=== PATIENT | female | born 1945 | race Caucasian/White ===

== ENCOUNTER 2016-10-08 02:13 | Observation (INO) | payer MEDICARE, OTHER ==
--- NOTE | ~2016-10-08 | CN ---
Consultation Report [facility] [address] [place]. [address] NAME: CHRIS HO : 49 STATUS : ADM Sdyni PAT#: [id number] AGE: 71 ADM/REG DATE : 10/08/16 MR#: [id number] REPORT SERV DATE: 10/09/16 DICTATED BY: BRENTON QUACH DATE: 10/08/16 REPORT STATUS : Draft TRANSCRIBED BY: MODDaniel DATE: 10/08/16 ORTHOPEDIC FOOT AND ANKLE CONSULTATION DATE OF CONSULTATION: 10/08/2016 REASON FOR CONSULTATION: Left trimalleolar ankle fracture. I was called by Dr. Bradley Mason to evaluate Chris Ho. HISTORY OF PRESENT ILLNESS: Chris Ho is a 71-year-old lady who presents from [facility] with a trimalleolar fracture of the left ankle. The patient fell and suffered an unstable left ankle fracture. She denied associated injury to include head injury, loss of consciousness, or injury to her cervical, thoracic, or lumbar spine. She denied injury to her bilateral upper or right lower extremity. REVIEW OF SYSTEMS: The patient was in her usual state of health at the time of the evaluation. She denied fevers, chills, nausea, vomiting, abdominal pain, shortness of breath, or chest pain. PAST MEDICAL HISTORY: Complicated including several strokes in the past with resultant seizure disorder, encephalomalacia, longstanding hypertension, hyperlipidemia, hypothyroidism, osteoarthritis, osteoporosis, mild cognitive impairment, and coronary artery disease with previous stent placement. She was here two months ago with UTI and encephalopathy. FAMILY HISTORY: Heart disease. SOCIAL HISTORY: with grown children. Lives in assisted living with no history of alcohol, tobacco, or drugs. She states she is a community ambulator and gets up every day. ALLERGIES: DILANTIN, QUINOLONES, PENICILLIN, CEPHALOSPORINS, BUTALBITAL, AND MACROBID. PHYSICAL EXAMINATION: GENERAL: Reveals age-appropriate female, lying supine in the hospital bed. She is in no acute distress. VITAL SIGNS: She is 5 feet 5 inches tall and weighs around 256 pounds. BP is 140/61, pulse 72, and respirations 16. GENERAL: She is awake and answers questions. She is appropriate and admits to only left ankle pain. HEAD: Atraumatic. Pupils equal to light and reactive. NECK: Nontender with gentle range of motion. CHEST: Nonlabored breathing. HEART: Regular rate. ABDOMEN: Obese. Consultation Report [place] [place] [id number] [place]. [address] NAME: CHRIS HO : 49 STATUS : ADM Sydni PAT#: [id number] AGE: 71 ADM/REG DATE : 10/08/16 MR#: [id number] REPORT SERV DATE: 10/09/16 DICTATED BY: BRENTON QUACH DATE: 10/08/16 REPORT STATUS : Draft TRANSCRIBED BY: FRANKY DATE: 10/08/16 EXTREMITIES: Splint in place from the emergency room. Right lower extremity shows no evidence of traumatic injuries. No open skin lesions. LABORATORY DATA: White count is 8.9, hemoglobin 12.8. X-RAYS: X-rays of the hip, pelvis, left leg, left ankle, and left foot show a trimalleolar fracture of the left ankle. IMPRESSION: Left trimalleolar ankle fracture. PLAN: Lengthy discussion with the patient regarding her diagnosis and treatment options. This is an unstable fracture pattern and she is a community ambulator. For this reason, I recommended open reduction and internal fixation. We discussed the risks and benefits of the surgery, and at the conclusion of this, all of her questions have been appropriately answered. She wished to proceed with surgery. We will proceed with surgical stabilization of this ankle fracture. Thanks for the opportunity to participate in the care of this patient. Please feel free to call me on my cell phone at [phone] with additional questions or concerns. I spent 50 minutes on this consultation including medical record review, x-ray review, and [id number] discussion with the patient regarding her diagnosis and available treatment options. KATEY/FRANKY Brenton Quach MD / [id number] CC: Bradley Mason M.D.
--- NOTE | ~2016-10-08 | OP ---
Record Of Operation [facility] [address] [place]. [address] NAME: CHRIS HO : 49 STATUS : ADM Sydni PAT#: [id number] AGE: 71 ADM/REG DATE : 10/08/16 MR#: [id number] REPORT SERV DATE: 10/09/16 DICTATED BY: BRENTON QUACH DATE: 10/08/16 REPORT STATUS : Draft TRANSCRIBED BY: MODDaniel DATE: 10/08/16 DATE OF PROCEDURE: 10/08/2016 PREOPERATIVE DIAGNOSIS: Left trimalleolar ankle fracture. POSTOPERATIVE DIAGNOSIS: Left trimalleolar ankle fracture. PROCEDURE: Open reduction and internal fixation of left trimalleolar ankle fracture. ANESTHESIA: General. COMPLICATIONS: None. STATION CASHIER: Donis, surgical public aid eligibility assistant. IMPLANTS USED: Arthrex ankle fracture set. INDICATION FOR OPERATION: Chris Ho is a pleasant 71-year-old female who suffered the above with significant comorbid medical conditions. She lives at [facility]. She suffered a fall from a standing height with the above-mentioned injury. Risks and benefits of surgical intervention were discussed at length with the patient. All of her questions were answered. She wished to proceed. DESCRIPTION OF PROCEDURE: Chris was brought back to the operating room where general anesthesia was initiated. Left lower extremity was prepped and draped in usual sterile fashion. Esmarch exsanguination was utilized. Well-padded thigh tourniquet was inflated. Longitudinal incision was made over the lateral aspect of the distal fibula. Blunt dissection was used to protect local neurovascular structures. Limited subperiosteal dissection was used to expose the fracture edges. Irrigation and aspiration of the hematoma was performed. Anatomic reduction of the fracture was performed with fracture reduction clamps. This fracture pattern was not amenable to a lag screw. An 8-hole one-third tubular plate was placed on the lateral aspect of the bone. Combination of locking and nonlocking screws was used to secure the plate to the bone. We exchanged the nonlocking screw for a locking screw at the conclusion of the case. Next, we approached the medial side where an incision was made. Blunt dissection was used to protect local neurovascular structures. Limited subperiosteal dissection was used to expose the medial malleolar fracture. This was a relatively small fracture piece that involved primarily anterior aspect of the medial malleolus. The hematoma was irrigated and aspirated. Anatomic fracture reduction was obtained and a single Arthrex 4.0 mm cannulated screw was placed across the fracture. The screw achieved excellent bone purchase. At this time, live Fluoroscan imaging was performed. AP, oblique, and lateral views of the ankle were performed which confirmed acceptable reduction of the fracture with excellent hardware placement. Images were printed and saved. At this time, copious irrigation was repeated. Deep tissue was closed over the hardware with interrupted 2-0 Vicryl suture. Record Of Operation [facility] [address] [place]. [address] NAME: CHRIS HO : 49 STATUS : ADM Sydni PAT#: [id number] AGE: 71 ADM/REG DATE : 10/08/16 MR#: [id number] REPORT SERV DATE: 10/09/16 DICTATED BY: BRENTON QUACH DATE: 10/08/16 REPORT STATUS : Draft TRANSCRIBED BY: MODL DATE: 10/08/16 Subcu tissues and skin were closed in typical fashion using a "no-touch" technique. Bulky sterile dressings were applied and a well-padded posterior splint was placed. The patient did well throughout the case. She woke in the operating room and was transferred to the recovery room in satisfactory condition. KATEY/FRANKY Brenton Quach MD / [id number] CC: Bradley Mason M.D.
--- NOTE | ~2016-10-08 | HP ---
History And Physical [place] [facility] [id number] [facility]. [address] NAME: CHRIS HAWK : 49 STATUS : ADM Sydni PAT#: [id number] AGE: 71 ADM/REG DATE : 10/08/16 MR#: [id number] REPORT SERV DATE: 10/08/16 DICTATED BY: BRADLEY MASON DATE: 10/08/16 REPORT STATUS : Draft TRANSCRIBED BY: MODDaniel DATE: 10/08/16 DATE OF ADMISSION: 10/08/2016 CHIEF COMPLAINT: This is a 71-year-old lady who presents from [facility] with a bimalleolar fracture of the left ankle. HISTORY OF PRESENT ILLNESS: She fell and complained of pain and was sent to the emergency room and found to have a medial malleolar fracture with partial displacement and a distal fibular oblique fracture on the left. REVIEW OF SYSTEMS: She has been unsteady lately, but no other significant falls, no recent nausea, vomiting, diarrhea, cough, or fever. PAST MEDICAL HISTORY: She has had several strokes in the past with resultant seizure disorder, encephalomalacia, longstanding hypertension, hyperlipidemia, hypothyroidism, osteoarthritis, osteoporosis, mild cognitive impairment, coronary artery disease with previous stent placement. She was here two months ago with UTI and encephalopathy related to it. FAMILY HISTORY: Of heart disease. SOCIAL HISTORY: with grown children. Living in assisted living with no history of alcohol, tobacco, or drugs. ALLERGIES: DILANTIN, QUINOLONES, PENICILLIN, CEPHALOSPORINS, BUTALBITAL, AND MACROBID. PHYSICAL EXAMINATION: VITAL SIGNS: 5 feet 5 inches tall, weighed about 256 pounds. Blood pressure 140/61, pulse 72, respirations 16, temp 98.1, oxygen saturation 96% on room air. GENERAL: She is drowsy, but arouses and answers yes and no questions clearly, in no acute distress except when her leg is moved she is in significant pain. HEAD AND NECK: Cranial nerves grossly intact. Speech is staccato. Neck with fair range of motion. No mass. No JVD. CHEST: Clear. No wheezes. HEART: Regular rate and rhythm without murmur. Good peripheral pulses. ABDOMEN: Obese, supple, nontender. No mass, nondistended. AND RECTAL: Deferred. EXTREMITIES: Left lower leg in splint with mild bruising noted and 2+ ankle edema. NEUROLOGIC: Grossly intact to sensory and motor, but unable to sit up due to pain. No palpable cervical or axillary lymph nodes. LABORATORY: Sodium 146, potassium 4.5, GFR 61, glucose 111. WBC 8.9, H and H 12.[address] of the brain shows encephalomalacia, nonacute and worse on the left. Chest x-ray shows stable cardiomegaly with implanted vagal stimulator on the left and old rib fractures, no acute changes. X-rays of hip, pelvis, left leg and left foot only show the bimalleolar History And Physical [address] [address] NAME: CHRIS HAWK : 49 STATUS : ADM Sydni PAT#: [id number] AGE: 71 ADM/REG DATE : 10/08/16 MR#: [id number] REPORT SERV DATE: 10/08/16 DICTATED BY: BRADLEY MASON DATE: 10/08/16 REPORT STATUS : Draft TRANSCRIBED BY: MODL DATE: 10/08/16 fracture as described above. IMPRESSION: 1. Fractured left fibula and tibia, acute. 2. Osteoporosis. 3. Multiple strokes. 4. Seizure disorder. 5. Hypertension. 6. Hyperlipidemia. 7. Hypothyroid. 8. Osteoarthritis. 9. Coronary artery disease. PLAN: For Orthopedic consultation to evaluate for appropriate type of splinting or surgical repair as indicated and will go with optimum pain control, comfort measures, and when stable return to [facility]. BP/MODL Bradley Mason M.D. / [id number] CC: Bradley Mason M.D. [facility]
[~2016-10-08 02:13] MED LIST: ACET500CAP PO; ALBUTEROL 0.083%; ALERTAB25 MG PO; ATARAX50B PO; ATV.5 PO; AVALIDE1 TAB PO; BUM5 PO; CALTRA600D PO; CELEXA10 PO; CELEXA20 PO; CITRACAL PO; CLARIT10 PO; CRANBERRY PO; D.O.S.100 MG PO; DEPAKOTEER PO; DIASTAT ACDL PR; DIASTAT10 PR; DIOVAN HC1 PO; DOCUSOFT S100 MG PO; DSS PO; EZFE 200200 MG PO; FERROUS SULF325 M1 PO; FLONASE NAS; FLUCON150 PO; IMOD PO; IRON325 MG PO; KDUR20 PO; KEPPRA XR500 MG PO; KEPPRA1000 MG PO; KEPPRA500 PO; KEPPRA750 MG PO; KLONO2 PO; KLOR-CON M2020 MEQ PO; L40 PO; LEVOTHYROXIN25 MCG PO; LIDODERM T; LORT7 PO; LOTRIMIN AF12 EX; MACROBID PO; MAPAP OR; MIRALAXPKT PO; MOBIC15 MG PO; MOBIC7.5 PO; MUCINEX1200 MG PO; MULTIPLE VIT PO; MULTIVITAMI1 PO; MVIUDL PO; NAP375 PO; NORCO1 TA1 PO; NORV25 PO; NORV5 PO; OS500+D PO; PEP20 PO; PRILO PO; PRIN10 PO; PYR100B PO; SEROQUEL25 PO; SYN1 PO; T PO; TAMIFLU PO; THERA M PLUS PO; TOPAMAX200 MG PO; TRILEP300 PO; TUMSROLL PO; TYLENOL 8 HR650 MG PO; V5 PO; VALIUM10 MG PO; VENTOLIN HFA INH; VIMPAT200 MG PO; VIMPAT50 MG PO; VITC500 PO; VYTORIN 10/20 T1 TAB PO; X5 PO; ZANTAC150 MG PO; ZOCOR20 PO; ZOFRAN4 PO; ZOL100 PO; ZOL50 PO; ZYRTEC ALLGY10 MG PO
[2016-10-08 04:05] LABS: BASOPHILS 0 %; EOSINOPHILS 0 %; HEMOGLOBIN 12.8 g/dL (12.0-16.0); IMMATURE GRANULOCYTES 0.2 %; IMMATURE GRANULOCYTES ABSOLUTE 0.02 10/3/uL (0.0-0.11); LYMPHOCYTES 22.9 %; LYMPHOCYTES ABSOLUTE 2.03 10/3/uL (0.67-4.30); MEAN CORPUSCULAR HEMOGLOB 31.5 pg (26.0-34.0); MEAN CORPUSCULAR VOLUME 96.1 fL (80-100); MONOCYTES 7.3 %; MONOCYTES ABSOLUTE 0.65 10/3/uL (0.21-1.20); NEUTROPHILS 69.6 %; NEUTROPHILS ABSOLUTE 6.17 10/3/uL (2.02-8.40); PLATELET COUNT 232 10/3/uL (150-400); RBC DISTRIBUTION WIDTH 13.7 % (12.0-16.0); RED CELL COUNT 4.06 10/6/uL (4.0-5.6)
[2016-10-08 04:07] LABS: ER CBC TAT 0 Hrs 08 Mins; MANUAL DIFF NO %; MEAN CORPUS HGB CONC 32.8 g/dL (32.0-36.0); WHITE BLOOD CELLS 8.9 10/3/uL (4.5-10.5)
[2016-10-08 04:21] LABS: CALCIUM, SERUM 8.4 MG/DL (8.5-10.4); CHLORIDE, SERUM 108 MMOL/L (96-112); CO2 (CARBON DIOXIDE) 31 MMOL/L (24-34); CREATININE 0.95 MG/DL (0.55-1.02); GFR AFRICAN AMERICAN 71 ML/MIN (>=60); GFR NON AFRICAN AMERICAN 61 ML/MIN (>=60); POTASSIUM, SERUM 4.5 MMOL/L (3.5-5.3); SODIUM, SERUM 146 MMOL/L (135-148)
[2016-10-08 04:31] LABS: BUN (BLOOD UREA NITROGEN) 23 MG/DL (6-23); GLUCOSE, SERUM 111 MG/DL (60-99)
[2016-10-08] MEDS ORDERED: SENTAB PO (08:54)
[2016-10-08] MEDS ORDERED: MELA3 PO (08:54)
[2017-01-30] MEDS ORDERED: MIRALAX POWDER1 PKT PO (14:21)
[2017-01-30] MEDS ORDERED: CITRACAL PO (14:21)
[2017-01-30] MEDS ORDERED: L40 PO (14:21)
[2017-01-30] MEDS ORDERED: KLOR-CON M2020 MEQ PO (14:21)
[2017-01-30] MEDS ORDERED: MELATONIN5 M1 PO (14:22)
[2017-01-30] MEDS ORDERED: SENTAB PO (14:22)
[2017-01-30] MEDS ORDERED: DSS PO (14:22)
[2017-01-30] MEDS ORDERED: ZOL100 PO (14:23)
[2017-01-30] MEDS ORDERED: VIMPAT200 MG PO (14:23)
[2017-01-30] MEDS ORDERED: XANAX1 MG PO (14:23)
[2017-01-30] MEDS ORDERED: KEPPRA1000 MG PO (14:23)
[2017-01-30] MEDS ORDERED: NORCO1 TA1 PO (14:24)
[2017-01-30] MEDS ORDERED: PHENERGAN 2525 MG/M1 IM (14:25)
[2017-02-10] MEDS ORDERED: MELATONIN5 M1 PO (11:14)
[2017-02-10] MEDS ORDERED: L40 PO (11:14)
[2017-02-10] MEDS ORDERED: KEPPRA1000 MG PO (11:14)
[2017-02-10] MEDS ORDERED: KDUR20 PO (11:15)
[2017-02-10] MEDS ORDERED: CALTRA600D PO (11:15)
[2017-02-10] MEDS ORDERED: VIMPAT200 MG PO (11:15)
[2017-02-10] MEDS ORDERED: ZOL100 PO (11:15)
[2017-02-10] MEDS ORDERED: X5 PO (11:16)
[2017-02-10] MEDS ORDERED: [UNRECOGNIZED DRUG - CODE] PO (11:17)
[2017-02-10] MEDS ORDERED: DEPAKOT500 PO (11:18)
[2017-02-10] MEDS ORDERED: NORCO1 TA1 PO (11:18)
[2017-02-10] MEDS ORDERED: MIRALAX POWDER1 PKT PO (11:19)
== END 2016-10-10 17:08 ==
LOC: ER 02:13 → 1SO 06:59
PROVIDERS: Orthopaedic Surgery Foot and Ankle Surgery; Specialist
PROC: 0QSH04Z Reposition Left Tibia with Internal Fixation Device, Open Approach (ICD-10-PCS; principal; 2016-10-08 14:45)
DX: S82.852A Displaced trimalleolar fracture of left lower leg, initial encounter for closed fracture (principal); I10 Essential (primary) hypertension; E78.5 Hyperlipidemia, unspecified; E03.9 Hypothyroidism, unspecified; M19.90 Unspecified osteoarthritis, unspecified site; F41.9 Anxiety disorder, unspecified; M81.0 Age-related osteoporosis without current pathological fracture; I25.10 Atherosclerotic heart disease of native coronary artery without angina pectoris; G93.89 Other specified disorders of brain; K21.9 Gastro-esophageal reflux disease without esophagitis; F32.9 Major depressive disorder, single episode, unspecified; D64.9 Anemia, unspecified; E66.01 Morbid (severe) obesity due to excess calories; Z68.41 Body mass index [BMI] 40.0-44.9, adult; Z95.5 Presence of coronary angioplasty implant and graft; Z88.0 Allergy status to penicillin; Z88.5 Allergy status to narcotic agent; Z88.8 Allergy status to other drugs, medicaments and biological substances; Z90.89 Acquired absence of other organs; E78.00 Pure hypercholesterolemia, unspecified; I25.2 Old myocardial infarction; J45.909 Unspecified asthma, uncomplicated; Z87.01 Personal history of pneumonia (recurrent); Z86.69 Personal history of other diseases of the nervous system and sense organs; Z86.73 Personal history of transient ischemic attack (TIA), and cerebral infarction without residual deficits
CPT/HCPCS: 70450; 71010; 73502-LT; 73590-LT; 73610-LT; 73630-LT; 76000; 80048; 85025; 93005; 96374; 96375; 96376; 97162-GP; 97530-GP; 99285; A9270-GY; C1713; G0378; G8978-CM-GP; G8979-CL-GP; J0330; J2250; J2270; J2405; J3010; J3370

== ENCOUNTER 2016-12-14 11:47 | Emergency (ER) | payer MEDICARE, OTHER ==
[~2016-12-14 11:47] MED LIST changes: +MELA3 PO; +SENTAB PO
[2016-12-14 12:03] LABS: BASOPHILS 0 %; EOSINOPHILS 0.5 %; EOSINOPHILS ABSOLUTE 0.03 10/3/uL (0.0-0.53); HEMATOCRIT 40.2 % (36.0-48.0); HEMOGLOBIN 12.9 g/dL (12.0-16.0); IMMATURE GRANULOCYTES 0.2 %; IMMATURE GRANULOCYTES ABSOLUTE 0.01 10/3/uL (0.0-0.11); LYMPHOCYTES 33.8 %; LYMPHOCYTES ABSOLUTE 2.22 10/3/uL (0.67-4.30); MEAN CORPUS HGB CONC 32.1 g/dL (32.0-36.0); MEAN CORPUSCULAR HEMOGLOB 29.9 pg (26.0-34.0); MEAN PLATELET VOLUME 9.4 fL (9.2-13.0); MONOCYTES 12.2 %; NEUTROPHILS 53.3 %; PLATELET COUNT 196 10/3/uL (150-400); RBC DISTRIBUTION WIDTH 13.4 % (12.0-16.0); RED CELL COUNT 4.32 10/6/uL (4.0-5.6); WHITE BLOOD CELLS 6.6 10/3/uL (4.5-10.5)
[2016-12-14 12:04] LABS: ER CBC TAT 0 Hrs 04 MinsNP; MANUAL DIFF NO %; MEAN CORPUSCULAR VOLUME 93.1 fL (80-100)
[2016-12-14 12:15] LABS: INTERNATIONAL NORMAL RATI 1.1 UNITS (-); PARTIAL THROMBO TIME 25.4 SEC (22.5-37.2); PROTIME (NOT ORD) 13.8 SEC (12.0-14.5)
[2016-12-14 12:20] LABS: A/G RATIO 0.9 (0.7-1.9); ALKALINE PHOSPHATASE 120 U/L (45-117); BUN (BLOOD UREA NITROGEN) 21 MG/DL (6-23); CALCIUM, SERUM 8.7 MG/DL (8.5-10.4); CHLORIDE, SERUM 110 MMOL/L (96-112); CO2 (CARBON DIOXIDE) 31 MMOL/L (24-34); CREATININE 0.82 MG/DL (0.55-1.02); GFR AFRICAN AMERICAN 85 ML/MIN (>=60); GFR NON AFRICAN AMERICAN 73 ML/MIN (>=60); GLOBULIN 3.7 G/DL (2.5-4.1); GLUCOSE, SERUM 91 MG/DL (60-99); POTASSIUM, SERUM 4.2 MMOL/L (3.5-5.3); SGOT(AST) 17 U/L (5-40); SGPT(ALT) 16 U/L (5-65); SODIUM, SERUM 144 MMOL/L (135-148); TOTAL BILIRUBIN 0.4 MG/DL (0-1.2); TOTAL PROTEIN 7.1 G/DL (6.0-8.5); TROPONIN I <0.02 NG/ML (<0.05)
[2016-12-14 12:22] LABS: ALBUMIN 3.4 G/DL (3.5-5.0)
[2016-12-14 12:23] LABS: ASCORBIC ACID (UR NOT ORDER) NEG (NEG); BILIRUBIN, URINE NEGATIVE (NEG); ER URINALYSIS TAT 0 Hrs 12 Mins; KETONE, URINE NEGATIVE (NEG); LEUKOCYTE ESTERASE(NOT OR TRACE (NEG); NITRITE (URINE) NEG (NEG); WBC (NOT ORDERED) (RFLEX) 2 (0-5)
[2017-01-30] MEDS ORDERED: L40 PO (14:21)
[2017-01-30] MEDS ORDERED: MIRALAX POWDER1 PKT PO (14:21)
[2017-01-30] MEDS ORDERED: KLOR-CON M2020 MEQ PO (14:21)
[2017-01-30] MEDS ORDERED: CITRACAL PO (14:21)
[2017-01-30] MEDS ORDERED: SENTAB PO (14:22)
[2017-01-30] MEDS ORDERED: MELATONIN5 M1 PO (14:22)
[2017-01-30] MEDS ORDERED: DSS PO (14:22)
[2017-01-30] MEDS ORDERED: XANAX1 MG PO (14:23)
[2017-01-30] MEDS ORDERED: KEPPRA1000 MG PO (14:23)
[2017-01-30] MEDS ORDERED: ZOL100 PO (14:23)
[2017-01-30] MEDS ORDERED: VIMPAT200 MG PO (14:23)
[2017-01-30] MEDS ORDERED: NORCO1 TA1 PO (14:24)
[2017-01-30] MEDS ORDERED: PHENERGAN 2525 MG/M1 IM (14:25)
[2017-02-10] MEDS ORDERED: L40 PO (11:14)
[2017-02-10] MEDS ORDERED: KEPPRA1000 MG PO (11:14)
[2017-02-10] MEDS ORDERED: MELATONIN5 M1 PO (11:14)
[2017-02-10] MEDS ORDERED: ZOL100 PO (11:15)
[2017-02-10] MEDS ORDERED: KDUR20 PO (11:15)
[2017-02-10] MEDS ORDERED: CALTRA600D PO (11:15)
[2017-02-10] MEDS ORDERED: VIMPAT200 MG PO (11:15)
[2017-02-10] MEDS ORDERED: X5 PO (11:16)
[2017-02-10] MEDS ORDERED: [UNRECOGNIZED DRUG - CODE] PO (11:17)
[2017-02-10] MEDS ORDERED: DEPAKOT500 PO (11:18)
[2017-02-10] MEDS ORDERED: NORCO1 TA1 PO (11:18)
[2017-02-10] MEDS ORDERED: MIRALAX POWDER1 PKT PO (11:19)
== END 2016-12-14 20:04 | disposition home or self-care (01) ==
LOC: ER 11:47
PROVIDERS: Emergency Medicine
DX: S09.90XA Unspecified injury of head, initial encounter (principal); F03.90 Unspecified dementia, unspecified severity, without behavioral disturbance, psychotic disturbance, mood disturbance, and anxiety; I10 Essential (primary) hypertension; I25.2 Old myocardial infarction; D64.9 Anemia, unspecified; Z95.5 Presence of coronary angioplasty implant and graft; Z86.73 Personal history of transient ischemic attack (TIA), and cerebral infarction without residual deficits; Z88.0 Allergy status to penicillin; Z88.8 Allergy status to other drugs, medicaments and biological substances; Z88.1 Allergy status to other antibiotic agents; Z79.899 Other long term (current) drug therapy; W19.XXXA Unspecified fall, initial encounter
CPT/HCPCS: 70450; 71010; 80053; 81001; 84484; 85025; 85610; 85730; 93005; 99285